=== PATIENT | male | born 1990 | race Two or more races ===

== ENCOUNTER 2016-11-28 13:03 | Emergency (ER) | payer OTHER ==
[~2016-11-28] VITALS: Ht 177.8 cm; Wt 81.6 kg
[2016-11-28] MEDS ORDERED: TDAP [DIPH/PERTUSSIS/TET] 0.5 ML VIAL IM ONE ×2 (13:30→13:36)
[2016-11-28] MEDS ORDERED: EMTRICITABINE/TENOFOVIR 1 TAB PO ONE (14:00)
[2016-11-28] MEDS ORDERED: RALTEGRAVIR POTASSIUM 400 MG TABLET PO ONE (14:00)
[2016-11-28 14:13] VITALS: BP 128/75
[2016-11-28 17:24] LABS: HIV-1 p24 ANTIGEN NON REACTIVE (NONREACTIVE); HIV-1/2 ANTIBODY NON REACTIVE (NONREACTIVE)
[2016-11-29 09:21] LABS: HEPATITIS C VIRUS AB <0.1 s/co ratio (0.0-0.9)
== END 2016-11-28 14:14 | disposition home or self-care (01) ==
LOC: ER 13:05
DX: S69.92XA Unspecified injury of left wrist, hand and finger(s), initial encounter (principal); Z88.0 Allergy status to penicillin; W46.0XXA Contact with hypodermic needle, initial encounter; Y93.E8 Activity, other personal hygiene; Y92.238 Other place in hospital as the place of occurrence of the external cause; Y99.0 Civilian activity done for income or pay
CPT/HCPCS: 36415; 86706; 86803; 87340; 90471; 90715; 99284; A4606; Z7610